=== PATIENT | male | born 1990 | race Caucasian/White ===

== ENCOUNTER → 2021-09-03 | Outpatient (CLI) | payer BC ==
[~2021-09-03] MED LIST: CIPR500T78 PO; HYDR-3875 PO; HYDR-3876 PO; HYOS0.1216 PO; LEVO250T11 PO; LEVO500T78 PO; ONDA8TAB13 PO; OXYC-100 PO; PHEN200T27 PO; TAMS0.4C2 PO; TAMS0.4C9 PO; TMSL.4C PO
--- NOTE | 2021-09-03 14:18 | Diagnostic Imaging Report ---
EXAMINATION: Left lower extremity CT, 09/03/2021. TECHNIQUE: Multiple contiguous axial images were obtained through the left lower extremity without the use of intravenous contrast. Sagittal and coronal reformations were then performed. Auto Exposure Controls were utilized during the CT exam to meet ALARA standards for radiation dose reduction. INDICATION: Broken ankle. Nonhealing, pain. FINDINGS: There is a nonunited fracture through the lateral aspect of the navicular. Mild sclerosis is seen along the abutting fracture ends without evidence for fusion. The fracture is minimally comminuted in nature. Small osseous fragments are also noted along the anterior border of the calcaneus near the calcaneonavicular joint space. These appear well corticated. The remaining osseous structures appear intact. Scattered hyperdensities throughout the osseous structures most consistent with bone islands. Soft tissues appear unremarkable. IMPRESSION: 1. Nonunited fracture of the navicular as above with osseous fragments in the calcaneonavicular joint space, well corticated in nature. Dictated by: Dictated on workstation # [id number]
== END ==
LOC: RAD 13:15
PROVIDERS: ATTEND Orthopaedic Surgery
DX: S92.252K Displaced fracture of navicular [scaphoid] of left foot, subsequent encounter for fracture with nonunion (principal)
CPT/HCPCS: 73700